=== PATIENT | male | born 2000 | race Caucasian/White ===

== ENCOUNTER 2024-06-09 18:20 | Emergency (ER) | payer OTHER, SELFPAY ==
[2024-06-09 18:35] VITALS: BP 120/74
[2024-06-09 18:46] VITALS: BMI 24.1
--- NOTE | 2024-06-09 20:54 | ED.GENMED ---
History of Present Illness
General
Chief Complaint: Musculo-Skeletal Complaint
Source: patient
Exam Limitations: none
Time Seen by Provider: 06/09/24 19:52
Nursing documentation reviewed up to this point in time: agreed with
History of Present Illness
History of Present Illness:
24 Y/O m
H/O previous patellar dislocations
here with patellar lateral dislocatino while playing basketball and relocated pre hospital
now with mild swelling pain
able to fully straighten the knee; able to flex and extend normally
pain is much better now
no numbness/tingling/weakness, no calf pain/swelling
normal foot/ankle
Past History
Past History
ED Past Medical History: None
ED Past Surgical History: None
Social History
Tobacco: Non-smoker
Alcohol: None
Drug: None
Personal: Single
Living: with roommate
Employment: Student
Family History
Family History: Other
Review of Systems
Review of Systems
Allergies reviewed?: Yes
All Other Systems: Not applicable
Phy Exam
Physical Exam
Physical Exam:
GENERAL: Alert , in no apparent distress, comfortable at rest
HEAD: NCAT
CV: 2+ DP PULSES B/L
NEUROLOGICAL: Alert and oriented, no focal neuro deficits, , 5/5 strength, sensation intact, ambulation slight limp right leg
SKIN: Warm and dry,
MUSCULOSKELETAL: mild swelling to the R knee, mild effusion
patella does not appear to be dislocated; but is esasily subluxed with lateral stress on the patella;
easily subluxing patella
PSYCH: Normal and appropriate interaction.
Course
Orders/Labs/Results
Orders:
Orders
06/09/24 18:21
CR Knee- Right 4 Or More View* Urgent
Comment:
Reason For Exam: injury
Vital Signs
Initial and Last Documented VS:
Initial Vital Signs
Temp Pulse Resp BP Pulse Ox
36.7 C 96 16 120/74 98
06/09/24 18:35 06/09/24 18:35 06/09/24 18:35 06/09/24 18:35 06/09/24 18:35
Last Documented Vital Signs
Temp Pulse Resp BP Pulse Ox
37.1 C 56 16 137/76 99
06/09/24 21:30 06/09/24 21:30 06/09/24 21:30 06/09/24 21:30 06/09/24 21:30
MDM/Problems Addressed
Differential Diagnosis Includes:
patellar dislocation, chronic subluxation
MDM/Problems Addressed:
24 y/o M
disocated patella, reolated pre hopspital
h/o same 2 other times
never went to PT
able to fully extend here
able to flex
patella seems in normal position at rest
xray appreciated, indep reviewed by me
lkely has chronic subluxation
bracing, crutches (at home)
f/u ortho
*Critical Care Note
Total Time (30-74mins, 75-104mins- exclusive of procedures): Not Applicable
ED Attending Note
-
Portions of this chart may have been created with voice recognition software.� Occasional wrong word or��sound alike� substitutions may have occurred due to the inherent limitations of voice recognition software.
Discharge Plan
Departure
Patient Disposition: Home (Routine Discharge)
Date of Disposition: 06/09/24
Time of Disposition: 21:16
Patient with high blood pressure during this ER visit?: No
Condition: Fair
Covid-19: Not Applicable
Discharge Problem:
Closed dislocation of right patella
Instructions: Dislocated Kneecap (DC)
Prescriptions:
No Action
methylprednisolone [Medrol (Max)] 4 MG tablets,dose pack
4 tab PO . DIRECT Qty: 1 0RF
albuterol sulfate [Proventil HFA] 90 MCG/PUFF HFA aerosol inhaler
1 puff inhalation Q4HPRN PRN (Reason: shortness of breath) Qty: 1 0RF
albuterol sulfate 2.5 MG/3 ML solution for nebulization
2.5 mg inhalation R Q4HPRN PRN (Reason: shortness of breath, cough) Qty: 1 0RF
diphenhydramine HCl 25 MG strip
50 mg PO PRN PRN (Reason: hives)
epinephrine [EpiPen] 0.3 MG/0.3/SYRINGE auto-injector
0.3 mg IM .STAT PRN (Reason: severe allergic reaction signs) Qty: 1 0RF
Rx Instructions:
administer as needed and call 911 and come to the ER
epinephrine [EpiPen] 0.3 MG/0.3/SYRINGE auto-injector
0.3 mg IM DIRECTED Qty: 1 0RF
Rx Instructions:
GENERIC SUBSTITUTION PERMITTED
cetirizine [Zyrtec] 10 MG tablet,disintegrating
10 mg PO DIRECTED Qty: 23 0RF
Rx Instructions:
Take 1 tablet 3 times a day for 3 days. Then take 1 tablet 2 times a day for 7 days
famotidine 20 MG tablet
20 mg PO DAILY Qty: 7 0RF
Rx Instructions:
Take daily x 7 days
prednisone 10 MG tablet
10 mg PO .TAPER Qty: 30 0RF
Rx Instructions:
Take 40mg daily x3days, 30mg daily x3days,
20mg daily x3days, 10mg daily x3days.
Referrals:
Candelario Ruvalcaba MD [Active] - Follow up in 5-7 days
Nancy Hamm PA-C [Family Provider] -
Stand Alone Forms: Return to Work
Activity Restrictions/Additional Instructions:
Wear the knee brace, use crutches to avoid weightbearing, take ibuprofen as needed for pain, ice off-and-on. Please follow-up with orthopedics. You likely will need physical therapy. Return for any concerns
Interventions
Interventions:
*Risk Screen - Suicide Last Done: 06/09/24 18:35
*General Assessment Last Done: 06/09/24 18:46
*Neglect/Abuse Screening Last Done: 06/09/24 18:35
*ED- Fall Risk Assessment Last Done: 06/09/24 21:30
*ED COVID-19 Vaccine History Last Done: 06/09/24 21:30
*Nursing Disposition Last Done: 06/09/24 21:30
ED-Musculoskeletal Assessment Last Done: 06/09/24 18:46
Discharge Date and Time
Discharge Date/Time: 06/09/24 21:30
Print Language: NIGERIEN
[2024-06-09 21:30] VITALS: BP 137/76
== END 2024-06-09 21:30 | disposition home or self-care (01) ==
LOC: EMR 18:20
PROVIDERS: EMERGENCY PHYSICIAN Emergency Medicine; FAMILY PHYSICIAN Physician Assistant Medical
DX: S83.004A Unspecified dislocation of right patella, initial encounter (principal); Y93.67 Activity, basketball
CPT/HCPCS: 99283; 73564